=== PATIENT | male | born 1970 | race Caucasian/White ===

== ENCOUNTER 2020-10-03 07:16 | Inpatient (IN) | payer OTHER ==
[~2020-10-03] VITALS: Ht 172.7 cm; Wt 81.5 kg
[2020-10-03] MEDS ORDERED: NALOXONE HCL 1 MG/ML 2 ML SYG IVP ONE ×2 (07:30→11:30)
[2020-10-03 08:08] LABS: BASOPHILS % (AUTO) 0.9 % (0.0-2.0); EOSINOPHILS % (AUTO) 3.6 % (1.0-6.0); HEMATOCRIT 35.8 % (41-53); HEMOGLOBIN 12.1 g/dL (13.5-17.5); LYMPHOCYTES # (AUTO) 2.8 K/uL (1.0-4.8); LYMPHOCYTES % (AUTO) 44.7 % (22.0-44.0); MEAN CORPUSCULAR HEMOGLOBIN 30.4 pg (26.0-34.0); MEAN CORPUSCULAR HGB CONC 33.7 G/dL (31.0-37.0); MEAN CORPUSCULAR VOLUME 90 fL (80-100); MONOCYTES # (AUTO) 0.6 K/uL (0.1-1.0); MONOCYTES % (AUTO) 9.2 % (2.0-9.0); NEUTROPHILS # (AUTO) 2.6 K/uL (1.8-7.7); NEUTROPHILS % (AUTO) 41.6 % (40.0-70.0); PLATELET COUNT (AUTO) 188 K/uL (150-450); RED BLOOD CELL COUNT(AUTO) 3.97 MIL/uL (4.50-5.90); RED CELL DISTRIBUTION WIDTH 13.4 % (11.5-14.5)
[2020-10-03 08:26] LABS: ALANINE AMINOTRANSFERASE 208 U/L (12-78); ALBUMIN 2.8 g/dL (3.4-5.0); ALKALINE PHOSPHATASE 143 U/L (46-116); ANION GAP 10 mmol/L (8-16); ASPARTATE AMINOTRANSFERASE 166 U/L (15-37); BILIRUBIN,TOTAL 0.3 mg/dL (0.1-1.0); CALCIUM, TOTAL 8.7 mg/dL (8.8-10.5); CARBON DIOXIDE 28 mmol/L (22-29); CHLORIDE 100 mmol/L (98-107); CREATININE 0.73 mg/dL (0.60-1.30); GLOMERULAR FILTR. RATE CALC > 60 mL/min (>60); GLUCOSE,RANDOM 117 mg/dL (70-110); POTASSIUM 3.6 mmol/L (3.5-5.1); SODIUM SERUM 138 mmol/L (136-145); TOTAL PROTEIN, SERUM 9.3 g/dL (6.4-8.2); UREA NITROGEN, BLOOD 16 mg/dL (7-18)
[2020-10-03 09:47] LABS: GLUCOSE,POINT OF CARE 128 MG/DL (70-110)
[2020-10-03 09:51] LABS: ACETAMINOPHEN < 2 mcg/mL (10-30)
[2020-10-03 10:34] LABS: AMPHET/METH SCREEN,URINE POSITIVE (NEGATIVE); BARBITURATE SCREEN, URINE NEGATIVE (NEGATIVE); BENZODIAZEPINES SCREEN,URINE NEGATIVE (NEGATIVE); CANNABINOID SCREEN,URINE NEGATIVE (NEGATIVE); COCAINE SCREEN,URINE NEGATIVE (NEGATIVE); METHADONE SCREEN, URINE NEGATIVE (NEGATIVE); OPIATE SCREEN,URINE POSITIVE (NEGATIVE)
[2020-10-03 10:41] LABS: PHENCYCLIDINE SCREEN,URINE NEGATIVE (NEGATIVE)
[2020-10-03 10:59] LABS: SALICYLATE 2.1 mg/dL (2.8-20.0)
[2020-10-03] MEDS ORDERED: WATER IV ONE ×3 (13:15→18:15)
[2020-10-03] MEDS ORDERED: ACETYLCYSTEINE IV ONE ×3 (13:15→18:15)
[2020-10-03] MEDS ORDERED: DEXTROSE 5% IV ONE ×3 (13:15→18:15)
[2020-10-03] MEDS ORDERED: ONDANSETRON HCL 4 MG/2 ML VIAL IVP PRN (13:30)
[2020-10-03] MEDS ORDERED: MAGNESIUM HYDROXIDE SUSPENSION 30 ML UDCUP PO PRN (13:30)
[2020-10-03] MEDS ORDERED: ACETAMINOPHEN 325 MG TABLET PO PRN (13:30)
[2020-10-03 13:59] LABS: COVID AG,FIA SOURCE NASOPHARYNGEAL
[2020-10-03 14:45] VITALS: BP 136/77
[2020-10-03] MEDS ORDERED: HEPARIN SODIUM,PORCINE 5,000 UNITS/ML VIAL SQ SCH (16:00)
[2020-10-03 16:10] VITALS: BP 140/79
[2020-10-03 18:38] LABS: INR 1.2 (0.9-1.1)
[2020-10-03 18:39] LABS: ALANINE AMINOTRANSFERASE 226 U/L (12-78); ASPARTATE AMINOTRANSFERASE 175 U/L (15-37)
[2020-10-04] MEDS ORDERED: PANTOPRAZOLE SODIUM 40 MG/VIAL IVP SCH (09:00)
== END 2020-10-03 19:10 | disposition left against medical advice (07) | DRG 817 ==
LOC: EMS 07:19 → 5S 13:29
PROVIDERS: ADMIT Internal Medicine; ATTEND Internal Medicine
DX: T39.1X2A Poisoning by 4-Aminophenol derivatives, intentional self-harm, initial encounter (principal); G92 Toxic encephalopathy; R74.01 Elevation of levels of liver transaminase levels; F19.10 Other psychoactive substance abuse, uncomplicated; Y92.89 Other specified places as the place of occurrence of the external cause; Z20.822 Contact with and (suspected) exposure to COVID-19
CPT/HCPCS: 70450; 80053; 82948; 82962; 84450; 84460; 85025; 85610; 87426; 99291; G0480; G0481; J0132; J1644; J2310; J7060

== ENCOUNTER 2021-04-16 17:35 | Inpatient (IN) | payer OTHER ==
[~2021-04-16] VITALS: Ht 170.2 cm; Wt 80.0 kg
[2021-04-16] MEDS ORDERED: VANCOMYCIN HCL 1 GM/D5% WATER 200 ML IV ONE (18:30)
[2021-04-16] MEDS ORDERED: ONDANSETRON HCL 4 MG/2 ML VIAL IVP PRN ×2 (18:45→21:15)
[2021-04-16] MEDS ORDERED: ACETAMINOPHEN 325 MG TABLET PO PRN ×2 (18:45→21:15)
[2021-04-16 19:39] LABS: BASOPHILS % (AUTO) 0.5 % (0.0-2.0); EOSINOPHILS % (AUTO) 1.4 % (1.0-6.0); HEMATOCRIT 32.9 % (41-53); HEMOGLOBIN 10.9 g/dL (13.5-17.5); LYMPHOCYTES # (AUTO) 1.9 K/uL (1.0-4.8); LYMPHOCYTES % (AUTO) 30.2 % (22.0-44.0); MEAN CORPUSCULAR HEMOGLOBIN 29.4 pg (26.0-34.0); MEAN CORPUSCULAR HGB CONC 33.2 G/dL (31.0-37.0); MEAN CORPUSCULAR VOLUME 89 fL (80-100); MONOCYTES # (AUTO) 0.5 K/uL (0.1-1.0); MONOCYTES % (AUTO) 8.4 % (2.0-9.0); NEUTROPHILS # (AUTO) 3.7 K/uL (1.8-7.7); NEUTROPHILS % (AUTO) 59.5 % (40.0-70.0); PLATELET COUNT (AUTO) 204 K/uL (150-450); RED BLOOD CELL COUNT(AUTO) 3.71 MIL/uL (4.50-5.90); RED CELL DISTRIBUTION WIDTH 14.7 % (11.5-14.5)
[2021-04-16 20:03] LABS: ANION GAP 5 mmol/L (8-16); CALCIUM, TOTAL 8.9 mg/dL (8.8-10.5); CARBON DIOXIDE 32 mmol/L (22-29); CHLORIDE 103 mmol/L (98-107); CREATININE 0.76 mg/dL (0.60-1.30); GLOMERULAR FILTR. RATE CALC > 60 mL/min (>60); GLUCOSE,RANDOM 96 mg/dL (70-110); SODIUM SERUM 140 mmol/L (136-145); UREA NITROGEN, BLOOD 12 mg/dL (7-18)
[2021-04-16 20:09] LABS: ALANINE AMINOTRANSFERASE 223 U/L (12-78); ALBUMIN 2.8 g/dL (3.4-5.0); ALKALINE PHOSPHATASE 148 U/L (46-116); ASPARTATE AMINOTRANSFERASE 220 U/L (15-37); BILIRUBIN,TOTAL 0.3 mg/dL (0.1-1.0); TOTAL PROTEIN, SERUM 9.6 g/dL (6.4-8.2)
[2021-04-16 20:31] LABS: COVID AG,FIA SOURCE NASOPHARYNGEAL
[2021-04-16 21:14] VITALS: BP 137/83
[2021-04-16] MEDS ORDERED: BISACODYL 10 MG RECTAL RECTAL SUPPOSITORY PR PRN (21:15)
[2021-04-16] MEDS ORDERED: MAGNESIUM HYDROXIDE SUSPENSION 30 ML UDCUP PO PRN (21:15)
[2021-04-16] MEDS ORDERED: *CLINICAL-LEVOFLOXACIN IVPB DOSING CLINICAL ONE (21:15)
[2021-04-16] MEDS ORDERED: SODIUM CHLORIDE 0.9% 1,000 ML ONE (21:20)
[2021-04-16] MEDS: HEPARIN SODIUM,PORCINE 5,000 UNITS/ML VIAL SQ SCH (23:04)
[2021-04-17] MEDS: LEVOFLOXACIN 750 MG/D5% WATER 150 ML IV SCH (00:51)
[2021-04-17 05:25] VITALS: BP 126/72
[2021-04-17 06:43] LABS: ANION GAP 3 mmol/L (8-16); CALCIUM, TOTAL 8.5 mg/dL (8.8-10.5); CARBON DIOXIDE 29 mmol/L (22-29); CHLORIDE 105 mmol/L (98-107); CREATININE 0.67 mg/dL (0.60-1.30); GLOMERULAR FILTR. RATE CALC > 60 mL/min (>60); GLUCOSE,RANDOM 100 mg/dL (70-110); POTASSIUM 4.4 mmol/L (3.5-5.1); SODIUM SERUM 137 mmol/L (136-145); UREA NITROGEN, BLOOD 12 mg/dL (7-18)
[2021-04-17 07:00] LABS: HEMATOCRIT 33.6 % (41-53); HEMOGLOBIN 11.1 g/dL (13.5-17.5); MEAN CORPUSCULAR HEMOGLOBIN 29.6 pg (26.0-34.0); MEAN CORPUSCULAR HGB CONC 32.9 G/dL (31.0-37.0); MEAN CORPUSCULAR VOLUME 90 fL (80-100); PLATELET COUNT (AUTO) 145 K/uL (150-450); RED BLOOD CELL COUNT(AUTO) 3.74 MIL/uL (4.50-5.90); RED CELL DISTRIBUTION WIDTH 14.7 % (11.5-14.5)
[2021-04-17] MEDS ORDERED: SODIUM CHLORIDE 0.9% 0 ML ONE (07:09)
[2021-04-17] MEDS ORDERED: IOHEXOL 350 MG/ML 100 ML VIAL ONE ×2 (07:09→16:28)
[2021-04-17 07:25] LABS: BAND NEUTROPHILS % (MANUAL) 2 % (0-5); EOSINOPHILS % (MANUAL) 1 % (1-6); LYMPHOCYTES % (MANUAL) 46 % (22-44); MONOCYTES % (MANUAL) 3 % (2-9); SEGMENTED NEUTROPHILS % 48 % (40-70)
[2021-04-17 08:15] VITALS: BP 124/61
[2021-04-17] MEDS: DOCUSATE SODIUM 100 MG CAPSULE PO SCH ×2 (08:16→20:41)
[2021-04-17] MEDS: HEPARIN SODIUM,PORCINE 5,000 UNITS/ML VIAL SQ SCH ×3 (08:17→23:46)
[2021-04-17] MEDS: PANTOPRAZOLE SODIUM 40 MG DR TABLET PO SCH (08:17)
[2021-04-17] MEDS ORDERED: IOHEXOL 350 MG/ML 150 ML VIAL ONE (09:30)
[2021-04-17] MEDS ORDERED: IOHEXOL 350 MG/ML 75 ML VIAL ONE (11:46)
[2021-04-17] MEDS ORDERED: SODIUM CHLORIDE 0.9% 100 ML ONE (16:28)
[2021-04-17 19:38] VITALS: BP 114/75
[2021-04-18] MEDS: LEVOFLOXACIN 750 MG/D5% WATER 150 ML IV SCH (01:00)
[2021-04-18 04:40] VITALS: BP 110/60
[2021-04-18 07:39] VITALS: BP 111/70
[2021-04-18] MEDS: DOCUSATE SODIUM 100 MG CAPSULE PO SCH ×2 (08:17→20:29)
[2021-04-18] MEDS: PANTOPRAZOLE SODIUM 40 MG DR TABLET PO SCH (08:17)
[2021-04-18] MEDS: HEPARIN SODIUM,PORCINE 5,000 UNITS/ML VIAL SQ SCH ×3 (08:18→23:21)
[2021-04-18] MEDS ORDERED: VANCOMYCIN HCL 1 GM/D5% WATER 200 ML IV ONE (12:15)
[2021-04-18] MEDS ORDERED: VANCOMYCIN HCL 1.5 GM in DEXTROSE 5%-WATER 250 ML IV ONE (12:30)
[2021-04-18] MEDS: CefTRIAXone 1 GM/DEXTROSE 50 ML IV SCH (18:17)
[2021-04-18 20:46] VITALS: BP 125/79
[2021-04-18] MEDS: VANCOMYCIN HCL 1 GM/D5% WATER 200 ML IV SCH (23:17)
[2021-04-19] MEDS ORDERED: SODIUM CHLORIDE 0.9% 100 ML ONE ×2 (04:57→17:37)
[2021-04-19] MEDS ORDERED: IOHEXOL 350 MG/ML 100 ML VIAL ONE (04:57)
[2021-04-19 05:00] VITALS: BP 124/87
[2021-04-19 07:57] LABS: ALANINE AMINOTRANSFERASE 231 U/L (12-78); ALBUMIN 2.5 g/dL (3.4-5.0); ALKALINE PHOSPHATASE 175 U/L (46-116); ANION GAP 8 mmol/L (8-16); ASPARTATE AMINOTRANSFERASE 234 U/L (15-37); BILIRUBIN,TOTAL 0.3 mg/dL (0.1-1.0); CALCIUM, TOTAL 8.9 mg/dL (8.8-10.5); CARBON DIOXIDE 26 mmol/L (22-29); CHLORIDE 102 mmol/L (98-107); CREATININE 0.68 mg/dL (0.60-1.30); GLOMERULAR FILTR. RATE CALC > 60 mL/min (>60); GLUCOSE,RANDOM 92 mg/dL (70-110); POTASSIUM 4.6 mmol/L (3.5-5.1); SODIUM SERUM 136 mmol/L (136-145); TOTAL PROTEIN, SERUM 9.2 g/dL (6.4-8.2); UREA NITROGEN, BLOOD 12 mg/dL (7-18)
[2021-04-19] MEDS: HEPARIN SODIUM,PORCINE 5,000 UNITS/ML VIAL SQ SCH ×3 (08:00→15:38)
[2021-04-19 08:13] VITALS: BP 118/69
[2021-04-19] MEDS: DOCUSATE SODIUM 100 MG CAPSULE PO SCH ×2 (08:32→20:00)
[2021-04-19] MEDS: PANTOPRAZOLE SODIUM 40 MG DR TABLET PO SCH (08:33)
[2021-04-19] MEDS: VANCOMYCIN HCL 1 GM/D5% WATER 200 ML IV SCH ×3 (08:33→23:37)
[2021-04-19] MEDS: SODIUM CHLORIDE 0.9% 1,000 ML IV SCH (08:35)
[2021-04-19 14:53] LABS: BASOPHILS % (AUTO) 0.7 % (0.0-2.0); EOSINOPHILS % (AUTO) 0.8 % (1.0-6.0); HEMATOCRIT 38.5 % (41-53); HEMOGLOBIN 12.8 g/dL (13.5-17.5); LYMPHOCYTES # (AUTO) 1.9 K/uL (1.0-4.8); LYMPHOCYTES % (AUTO) 39.9 % (22.0-44.0); MEAN CORPUSCULAR HEMOGLOBIN 29.4 pg (26.0-34.0); MEAN CORPUSCULAR HGB CONC 33.3 G/dL (31.0-37.0); MEAN CORPUSCULAR VOLUME 88 fL (80-100); MONOCYTES # (AUTO) 0.3 K/uL (0.1-1.0); MONOCYTES % (AUTO) 5.5 % (2.0-9.0); NEUTROPHILS # (AUTO) 2.5 K/uL (1.8-7.7); NEUTROPHILS % (AUTO) 53.1 % (40.0-70.0); PLATELET COUNT (AUTO) 201 K/uL (150-450); RED BLOOD CELL COUNT(AUTO) 4.37 MIL/uL (4.50-5.90); RED CELL DISTRIBUTION WIDTH 14.4 % (11.5-14.5)
[2021-04-19] MEDS ORDERED: IOHEXOL 350 MG/ML 150 ML VIAL ONE (17:38)
[2021-04-19] MEDS: CefTRIAXone 1 GM/DEXTROSE 50 ML IV SCH (18:32)
[2021-04-19 20:10] VITALS: BP 113/71
[2021-04-20] MEDS: ZOLPIDEM TARTRATE 5 MG TABLET PO PRN ×2 (00:07→21:16)
[2021-04-20 05:20] VITALS: BP 128/82
[2021-04-20] MEDS: SODIUM CHLORIDE 0.9% 1,000 ML IV SCH ×3 (05:25→23:53)
[2021-04-20] MEDS: HEPARIN SODIUM,PORCINE 5,000 UNITS/ML VIAL SQ SCH ×3 (08:00→15:10)
[2021-04-20] MEDS: VANCOMYCIN HCL 1 GM/D5% WATER 200 ML IV SCH ×3 (08:16→23:53)
[2021-04-20 08:18] VITALS: BP 126/84
[2021-04-20] MEDS ORDERED: BUPIVACAINE HCL/PF 0.5% 30 ML VIAL ONE (08:33)
[2021-04-20] MEDS ORDERED: SODIUM CHLORIDE 0.9% 0 ML ONE (08:33)
[2021-04-20] MEDS ORDERED: VANCOMYCIN HCL 1 GM/VIAL ONE (08:33)
[2021-04-20] MEDS ORDERED: BUPIVACAINE HCL/PF 0.25% 30 ML VIAL ONE (08:33)
[2021-04-20] MEDS ORDERED: SODIUM CL IRRIG SOLN BAG 0 ML IRRIG ONE (08:34)
[2021-04-20] MEDS ORDERED: RINGERS SOLUTION,LACTATED 0 ML IV ONE (08:34)
[2021-04-20] MEDS ORDERED: FentaNYL CITRATE PF 100 MCG/2 ML VIAL IVP PRN (09:00)
[2021-04-20] MEDS ORDERED: MEPERIDINE-PF 25 MG/ML VIAL IVP PRN (09:00)
[2021-04-20] MEDS ORDERED: HYDROmorphone 2 MG/ML VIAL IVP PRN (09:00)
[2021-04-20] MEDS: DOCUSATE SODIUM 100 MG CAPSULE PO SCH ×2 (09:00→20:42)
[2021-04-20] MEDS ORDERED: HYDROCODONE/ACETAMINOPHEN 5-325 MG TABLET PO PRN (09:45)
[2021-04-20] MEDS: MORPHINE SULFATE 2 MG/ML SYRINGE IVP PRN ×3 (10:33→23:54)
[2021-04-20] MEDS: PANTOPRAZOLE SODIUM 40 MG DR TABLET PO SCH (10:45)
[2021-04-20] MEDS ORDERED: MIDAZOLAM HCL 2 MG/2 ML VIAL IVP ONE (12:00)
[2021-04-20] MEDS ORDERED: FentaNYL CITRATE PF 100 MCG/2 ML VIAL IVP ONE (12:00)
[2021-04-20] MEDS: IBUPROFEN 800 MG TABLET PO PRN ×2 (15:16→21:16)
[2021-04-20 15:18] LABS: ANION GAP 5 mmol/L (8-16); CALCIUM, TOTAL 8.4 mg/dL (8.8-10.5); CARBON DIOXIDE 27 mmol/L (22-29); CHLORIDE 104 mmol/L (98-107); CREATININE 0.75 mg/dL (0.60-1.30); GLOMERULAR FILTR. RATE CALC > 60 mL/min (>60); GLUCOSE,RANDOM 137 mg/dL (70-110); POTASSIUM 4.2 mmol/L (3.5-5.1); SODIUM SERUM 136 mmol/L (136-145); UREA NITROGEN, BLOOD 12 mg/dL (7-18); VANCOMYCIN,RANDOM 16.2 mcg/mL (25.0-50.0)
[2021-04-20 15:29] VITALS: BP 124/82
[2021-04-20] MEDS: CefTRIAXone 1 GM/DEXTROSE 50 ML IV SCH (17:29)
[2021-04-20] MEDS: OXYGEN THERAPY IH SCH (20:00)
[2021-04-20 20:47] VITALS: BP 124/72
[2021-04-21 04:00] VITALS: BP 114/90
[2021-04-21] MEDS: VANCOMYCIN HCL 1 GM/D5% WATER 200 ML IV SCH ×2 (07:54→16:13)
[2021-04-21] MEDS: PANTOPRAZOLE SODIUM 40 MG DR TABLET PO SCH (07:54)
[2021-04-21] MEDS: DOCUSATE SODIUM 100 MG CAPSULE PO SCH ×2 (07:55→19:49)
[2021-04-21] MEDS: HEPARIN SODIUM,PORCINE 5,000 UNITS/ML VIAL SQ SCH ×3 (07:55→16:00)
[2021-04-21] MEDS: HYDROCODONE/ACETAMINOPHEN 5-325 MG TABLET PO PRN ×2 (07:56→19:56)
[2021-04-21] MEDS: OXYGEN THERAPY IH SCH ×2 (08:00→20:00)
[2021-04-21 08:30] VITALS: BP 106/67
[2021-04-21 14:41] LABS: BASOPHILS % (AUTO) 0.6 % (0.0-2.0); EOSINOPHILS % (AUTO) 0.2 % (1.0-6.0); HEMATOCRIT 35.7 % (41-53); LYMPHOCYTES # (AUTO) 2.3 K/uL (1.0-4.8); LYMPHOCYTES % (AUTO) 38.4 % (22.0-44.0); MEAN CORPUSCULAR HEMOGLOBIN 29.2 pg (26.0-34.0); MEAN CORPUSCULAR HGB CONC 33.5 G/dL (31.0-37.0); MEAN CORPUSCULAR VOLUME 87 fL (80-100); MONOCYTES # (AUTO) 0.4 K/uL (0.1-1.0); MONOCYTES % (AUTO) 6.5 % (2.0-9.0); NEUTROPHILS # (AUTO) 3.3 K/uL (1.8-7.7); NEUTROPHILS % (AUTO) 54.3 % (40.0-70.0); PLATELET COUNT (AUTO) 210 K/uL (150-450); RED BLOOD CELL COUNT(AUTO) 4.11 MIL/uL (4.50-5.90); RED CELL DISTRIBUTION WIDTH 14.3 % (11.5-14.5)
[2021-04-21 14:58] LABS: ANION GAP 7 mmol/L (8-16); CALCIUM, TOTAL 8.5 mg/dL (8.8-10.5); CARBON DIOXIDE 27 mmol/L (22-29); CHLORIDE 105 mmol/L (98-107); CREATININE 0.96 mg/dL (0.60-1.30); GLOMERULAR FILTR. RATE CALC > 60 mL/min (>60); GLUCOSE,RANDOM 116 mg/dL (70-110); POTASSIUM 4.1 mmol/L (3.5-5.1); SODIUM SERUM 139 mmol/L (136-145); UREA NITROGEN, BLOOD 12 mg/dL (7-18); VANCOMYCIN,RANDOM 17.7 mcg/mL (25.0-50.0)
[2021-04-21] MEDS: SODIUM CHLORIDE 0.9% 1,000 ML IV SCH (16:13)
[2021-04-21] MEDS: ZOLPIDEM TARTRATE 5 MG TABLET PO PRN (19:56)
[2021-04-21 20:15] VITALS: BP 133/78
[2021-04-22] MEDS: VANCOMYCIN HCL 1 GM/D5% WATER 200 ML IV SCH ×4 (00:01→23:46)
[2021-04-22 05:45] VITALS: BP 151/81
[2021-04-22 07:59] VITALS: BP 118/69
[2021-04-22] MEDS: OXYGEN THERAPY IH SCH ×2 (08:00→20:00)
[2021-04-22] MEDS: SODIUM CHLORIDE 0.9% 1,000 ML IV SCH ×2 (08:47→10:57)
[2021-04-22] MEDS: HEPARIN SODIUM,PORCINE 5,000 UNITS/ML VIAL SQ SCH ×4 (08:48→23:46)
[2021-04-22] MEDS: PANTOPRAZOLE SODIUM 40 MG DR TABLET PO SCH (08:48)
[2021-04-22] MEDS: ETHYL ALCOHOL 62% ANTISEPTIC NASAL INHALANT 0.6 ML AMPUL NASAL SCH ×2 (08:48→19:58)
[2021-04-22] MEDS: DOCUSATE SODIUM 100 MG CAPSULE PO SCH ×2 (08:48→19:58)
[2021-04-22 12:56] LABS: ANION GAP 5 mmol/L (8-16); CALCIUM, TOTAL 8.3 mg/dL (8.8-10.5); CARBON DIOXIDE 23 mmol/L (22-29); CHLORIDE 106 mmol/L (98-107); CREATININE 0.77 mg/dL (0.60-1.30); GLOMERULAR FILTR. RATE CALC > 60 mL/min (>60); GLUCOSE,RANDOM 176 mg/dL (70-110); POTASSIUM 3.5 mmol/L (3.5-5.1); SODIUM SERUM 134 mmol/L (136-145); UREA NITROGEN, BLOOD 10 mg/dL (7-18)
[2021-04-22] MEDS ORDERED: SODIUM CL IRRIG SOLN BOTTLE 250 ML IRRIG ONE (13:59)
[2021-04-22] MEDS: HYDROCODONE/ACETAMINOPHEN 5-325 MG TABLET PO PRN ×2 (15:47→20:01)
[2021-04-22] MEDS: ZOLPIDEM TARTRATE 5 MG TABLET PO PRN (20:01)
[2021-04-22 20:58] VITALS: BP 119/66
[2021-04-23 05:12] VITALS: BP 121/71
[2021-04-23] MEDS: SODIUM CHLORIDE 0.9% 1,000 ML IV SCH (06:41)
[2021-04-23 07:30] VITALS: BP 113/53
[2021-04-23] MEDS: HEPARIN SODIUM,PORCINE 5,000 UNITS/ML VIAL SQ SCH ×2 (08:00→08:29)
[2021-04-23] MEDS: OXYGEN THERAPY IH SCH (08:00)
[2021-04-23] MEDS: DOCUSATE SODIUM 100 MG CAPSULE PO SCH ×2 (08:28→08:31)
[2021-04-23] MEDS: PANTOPRAZOLE SODIUM 40 MG DR TABLET PO SCH (08:28)
[2021-04-23] MEDS: VANCOMYCIN HCL 1 GM/D5% WATER 200 ML IV SCH (08:28)
[2021-04-23] MEDS: ETHYL ALCOHOL 62% ANTISEPTIC NASAL INHALANT 0.6 ML AMPUL NASAL SCH (08:29)
[2021-04-23] MEDS ORDERED: SULF-261 PO (11:37)
[2021-04-23 11:58] VITALS: BP 116/61
== END 2021-04-23 15:45 | DRG 580 ==
LOC: EMS 17:35 → 6S 18:39
PROVIDERS: ADMIT Internal Medicine; ATTEND Internal Medicine
PROC: 05HY33Z Insertion of Infusion Device into Upper Vein, Percutaneous Approach (ICD-10-PCS; 2021-04-18)
PROC: 0KBS0ZZ Excision of Right Lower Leg Muscle, Open Approach (ICD-10-PCS; 2021-04-20)
PROC: 0KBT0ZZ Excision of Left Lower Leg Muscle, Open Approach (ICD-10-PCS; principal; 2021-04-20 09:00)
DX: L02.416 Cutaneous abscess of left lower limb (principal); E44.0 Moderate protein-calorie malnutrition; L03.115 Cellulitis of right lower limb; D64.9 Anemia, unspecified; L02.415 Cutaneous abscess of right lower limb; Z20.822 Contact with and (suspected) exposure to COVID-19; F19.10 Other psychoactive substance abuse, uncomplicated; Z68.27 Body mass index [BMI] 27.0-27.9, adult
CPT/HCPCS: 36245; 36569; 73701; 76881; 76937; 80048; 80053; 80202; 84145; 85025; 87070; 87077; 87081; 87186; 87205; 88304; 99285; J0696; J1644; J1956; J2250; J2270; J3010; J3370; J3490; J7030; J7050; J7060; J7120; Q9967